=== PATIENT | female | born 1945 | race African-American/Black ===

== ENCOUNTER 2020-09-22 14:54 | Inpatient (IN) | payer OTHER, BC ==
[2020-09-22 21:30] VITALS: BP 111/75
--- NOTE | 2020-09-22 21:30 | NUR ---
Pt. admitted to the unit from the emergency room accompanied by staff. She is alert and oriented and offers no complaints. Pt. cooperative with staff. Oriented to room and staff.
--- NOTE | 2020-09-22 23:00 | NUR ---
Pt. resting quietly in the bed upon assessment. She verbalizes that she does not belong in this place and wants to get out of here tomorrow. She is not suicidal upon questioning patient. Pt. is ambulatory with a walker. Bed alarm is on.
[2020-09-23] MEDS ORDERED: SUPER THERAVIT1 EACH PO (02:31)
[2020-09-23] MEDS ORDERED: ESTRACE42.5 GM VAG (02:34)
[2020-09-23] MEDS ORDERED: KLONOPIN0.5 MG PO (02:35)
[2020-09-23 06:37] LABS: CHOLESTEROL 119 mg/dL (<200); HDL CHOLESTEROL 38 mg/dL (>40); LDL CHOLESTEROL 50 mg/dL (<100); TC:HDL 3.1 Ratio (Not establshd); TRIGLYCERIDE 156 mg/dL (<150); VLDL 31 mg/dL (<40)
[2020-09-23 06:42] LABS: CALCIUM 8.6 mg/dL (8.5-10.1); POTASSIUM 4.8 mmol/L (3.5-5.1)
[2020-09-23 06:46] LABS: SERUM ASSESSMENT Clear
[2020-09-23 08:00] VITALS: BP 130/70
--- NOTE | 2020-09-23 11:27 | NUR ---
New admission to [facility]. Pt unaware of any weight changes. Sent from [facility] for increased depression and requesting a mental hospital. Noted with poor intakes form [facility] paperwork "1/4 of 2 meals/day", but ate 100% breakfast this morning. Pt states she liked the biscuits and gravy and hopes she likes the lunch today. Reports good appetite. Pt pleasant during visit. Low nutrition risk.
--- NOTE | 2020-09-23 12:24 | NUR ---
DID COME TO DAYROOM WITH PROMPTING TO EAT BREAKFAST. ANXIOUS FACIAL EXPRESSION.ABRUPT RESPONSES TO QUESTIONS FROM NURSING STAFF. STATES "IS THERE ANYBODY HERE WHO IS NOT CRAZY" "ALL OF THESE PEOPLE ARE LOONEY AND BEING HERE IS GOING TO MAKE ME LOONEY TOO"ASKING VARIOUS STAFF MEMBERS TO "GET THAT DR HERE TO TALK TO ME-IM LEAVING-I CAN'T BE HERE WITH THESE PEOPLE. GAIT IS STEADY WITH USE OF ROLLER WALKER. DENIES SI/SH-DOES REPORT ANXIETY RATED A 9 ON 1/10 SCALE-VALIUM 5MG GIVEN PO PRN AT 1030 FOR ANXIETY. REFUSES TO ATTEND GROUPS-[facility]. DENIES SI/SH/HI. BP 130/70
[2020-09-23 19:32] VITALS: BP 127/79
[2020-09-23 23:06] LABS: GLYCOHEMOGLOBIN (HGB A1C) 5.3 % (4.8-5.6)
--- NOTE | 2020-09-24 05:32 | NUR ---
Assumed pt's care beginning of this pm shift. Pt was in her room at time of assessment. Cooperative with care. Did verbalize some anxiety. Denies SI/HI. Took meds whole per emar. Pt slept well this shift. No overnight event. Nursing to continue to monitor.
[2020-09-24 08:42] VITALS: BP 141/77
--- NOTE | 2020-09-24 16:21 | NUR ---
ERNIE recieved a call from [facility] Worker, Stella Gutierrezbobby [phone] or [phone]. ERNIE provided an update on the Pt. Stella asked if an application for food stamps and SSDI could be completed with the Pt while she was in the hospital. ERNIE informed this may not be possible however Pt has now been assigned a nurse case management through [employer]. ERNIE provided Stella with the renal case manager contact information. Stella asked to be informed when the Pt is discharged. ERNIE will continue to follow
--- NOTE | 2020-09-24 18:44 | NUR ---
0700 ASSUMED CARE OF PATIENT, PATIENT IN BED AT THAT TIME. PATIENT AMB WITH STEADY GAIT, LS CLEAR, BS ACTIVE. NO C/O PAIN. MEDICATION TAKEN WHOLE WITHOUT DIFFICULTY. PATIENT WORRIED OF URINE RETENTION, PATIENT VOIDED X3 TODAY. NO BM X3 DAYS. PATIENT SITS IN DAYROOM READING BOOK, VISITORS TODAY. DENIES NEEDS AT THIS TIME. DENIES SI / HI.
[2020-09-24 19:20] VITALS: BP 122/67
[2020-09-24 23:36] VITALS: BP 122/67
--- NOTE | 2020-09-24 23:48 | NUR ---
Pt is alert and oriented x 3, no complaints went to bed early, affect flat but pleasant. HRR, Lungs clear, abd soft nontender. Took her medication whole with water w/o difficulty. Denies SI/HI/AH/VH. will continue to monitor.
[2020-09-25 10:01] VITALS: BP 142/69
--- NOTE | 2020-09-25 18:12 | NUR ---
0700 ASSUMED CARE OF PATIENT, PATIENT SLEEPING AT THAT TIME. AMB WITH WALKER WITH STEADY GAIT. PATIENT ATE 90% OF BREAKFAST. LS CLEAR BS ACTIVE. ABD SOFT AND ROUND NO C/O PAIN. PATIENT VOIDED X1 IN AM WITH NO COMPLAINTS. NO BM X 4 DAYS PATIENT REQUESTS STOOL SOFTENER. MILK OF MAG GIVEN FOR C/O CONSTIPATION. 1809 C/O BACK PAIN, TYLENOL 650 MG PO GIVEN RATES PAIN 3. PRUNE JUICE GIVEN THIS EVENING. PATIENT SITTING IN CHAIR READING BOOK, PATIENT TEARY EYED STATES RETENTION STARTING UP AGAIN. PATIENT HAS VOIDED X2 PER PATIENT. ABD SOFT DENIES PAIN. PATIENT STATES "THIS IS A REAL PROBLEM". PATIENT CALM AND CONTINUES TO READ BOOK.
[2020-09-25 20:10] VITALS: BP 130/68
[2020-09-26 02:43] VITALS: BP 130/68
--- NOTE | 2020-09-26 02:51 | NUR ---
09/25/20 - pt was teary eyed this evening and voiced being fustrated with not having a bowel movement and also feels like she is experiencing bladder retention. "I just feel full" Miralax ordered for constipation. That was given and I discussed with the pt that I can do a bladder scan to see if she is retaining. Bladder scan completed and pt had 185 cc in bladder. Will continue to work to get pt bowels to move. Abd soft non tender, + bowel sounds. Alert and oriented x 3-4, Denies SI/HI/AH/VH.
[2020-09-26 09:01] VITALS: BP 115/65
--- NOTE | 2020-09-26 18:16 | NUR ---
0700 ASSUMED CARE OF PATIENT, PATIENT IN BED AT THAT TIME. AMB WITH WALKER WITH STEADY GAIT.PATIENT CALM AND COOPERATIVE. CONTINUES TO C/O CONSTIPATION MEDICATION GIVEN. MEDICATIONS TAKEN WHOLE WITHOUT DIFFICULTY. LS CLEAR, BS ACTIVE. PATIENT KEEPS BUSY WITH READY OFF AND ON. TYLENOL 650 MG PO GIVEN FOR C/O BACK PAIN. PATIENT C/O POSSIBLE RETENTION, STATES VOIDING MULTIPLE TIMES TODAY.
[2020-09-26 19:50] VITALS: BP 126/85
--- NOTE | 2020-09-27 02:57 | NUR ---
09-26-20 CARE TRANSFERRED 1899. LATER PT RESTING IN BED EASILY AWAKEN TO VOICE. PT AAOX4, VSS, RR EVEN AND NONLABORED ON RA. PT PRESENTS CALM AND COOPERATIVE. PT DENIES SI/HI AND PAIN. DURING MEDICATION ADMIN PT HAD NO DIFFICULTIES. LATER PT CAME TO NURSING STATION AND REPORTED HAVING A HEADACHE AND SCALED 6 ON 0-10 SCALE. PT BED WAS ADJUSTED FOR COMFORT, AND ALARM SET. UPON REASSESSMENT OF PAIN PT WAS RESTING WITH EYS CLOSED. ZERO S/S OF ACUTE DISTRESS NOTED, PT WILL CONTINUE TO BE MONITOR PER [facility] PROTOCOL.
[2020-09-27 05:29] LABS: HEMATOCRIT 37.1 % (37.0-47.0); HEMOGLOBIN 12.3 gm/dL (12.0-15.0); MCH 31.3 pg (26.0-34.0); MCHC 33.1 g/dL (28.0-37.0); MCV 94.6 fL (80.0-100.0); RBC 3.92 mil/uL (4.20-5.00); RDW 15.1 % (10.5-14.5); WBC 6.5 thou/uL (4.0-11.0)
[2020-09-27 05:33] LABS: CALCIUM 8.4 mg/dL (8.5-10.1); CREATININE 1.2 mg/dL (0.6-1.0); POTASSIUM 4.5 mmol/L (3.5-5.1)
[2020-09-27 09:00] VITALS: BP 131/73
--- NOTE | 2020-09-27 17:29 | NUR ---
ERNIE and Dr. Howard met with the Pt. The Pt's daughter, Senait, was also apart of this meeting by phone. Recommedation for assisted living was given. Pt does have detention care insurance however Senait was not sure if the funds could be accessed at this time. ERNIE and Dr. Howard advised getting a hard copy or calling the insurance company concerning how to get funding for placement. Senait stated the Pt has $2200 per month currently to pay for placement. Pt became tearful during the meeting. Pt concerned about where she will go. ERNIE offered emotional support to the Pt. SW will continue to follow
[2020-09-27 19:15] VITALS: BP 112/64
[2020-09-27 20:35] VITALS: BP 112/64
--- NOTE | 2020-09-27 23:57 | NUR ---
PATINET CARE WAS RESUMED AT 1900. SHE WAS IN BED ALARMED, LOW AND LOCKED. SHE DENIES PAINS/SI/AVH AND YELLOW SOCK AND TOP ON. SHE IS CONTINET OF B/B. C/O CONSTIPATION SHE AHD HER SCHEDULED MIRILAX. NO CONCERN OR BEHAVOIR NOTED AT THIS TIME. BS ACTIVE X4 QUAD ABD SOFT NONE TENDER. [id number] CHECK ON GOING . CONTINUE CARE
[2020-09-28 09:19] VITALS: BP 148/93
--- NOTE | 2020-09-28 10:47 | NUR ---
PT ALERT AND ORIENTED TIMES THREE. VSS. PT C/O PAIN PRN PAIN MEDICATIONS GIVEN WITH GOOD RELEIF. PT DENIES SI/HI/AH/VH. PT TOLERATES MEDS AND MEALS. PT WORKED WELL WITH PHYSICAL THERAPY, AND ATTENDED GROUPS TODAY. PT INTERACTS WELL WITH STAFF AND PEERS. WILL CONTINUE TO MONITOR.
--- NOTE | 2020-09-28 17:24 | NUR ---
ERNIE spoke with Dr. Howard concerning Pt. Dr. Howard informed the family has decided to take the Pt back to [place] at the [facility] and continue searching for an assisted living for the Pt. Pt will discharge 09/30/2020 @ 1200. The Pt's family will provide transportation. Pt has a follow up psychiatry appointment with Dr. Mcginnis on 10/12/2020
[2020-09-28 19:56] VITALS: BP 111/60
[2020-09-28 20:30] VITALS: BP 111/60
[2020-09-29] MEDS ORDERED: FLOMAX0.4 MG PO (09:21)
[2020-09-29] MEDS ORDERED: COZAAR100 MG PO (09:22)
[2020-09-29] MEDS ORDERED: LIPITOR 20 MG T20 M1 PO (09:22)
[2020-09-29] MEDS ORDERED: ADULT LOW DOSE81 MG PO (09:23)
[2020-09-29] MEDS ORDERED: CLONAZEPAM 0.50.5 M1 PO (09:23)
[2020-09-29] MEDS ORDERED: NEURONTIN 300M300 M2 PO (09:24)
[2020-09-29] MEDS ORDERED: BUPROPION XL300 MG PO (09:24)
[2020-09-29] MEDS ORDERED: STIMULANT LAXA1 EACH PO (09:25)
[2020-09-29] MEDS ORDERED: PT HOME MEDICATION MISCELL (09:27)
[2020-09-29] MEDS ORDERED: SYNTHROID25 MC1 PO (09:27)
[2020-09-29] MEDS ORDERED: MELATONIN5 M1 PO (09:28)
[2020-09-29 10:53] VITALS: BP 138/69
--- NOTE | 2020-09-29 12:50 | NUR ---
Assumed pt care at 0700. pt was alert and oriented x4. Assessments completed, vss. Active bowel sounds. Pt denies si/hi, Pt took meds whole, no difficulty noted. Ambulates with a steady gait. NO SIGN OF ACUTE DISTRESS NOTED upon assessments. pt c/o pain, pain meds administered as ordered. Pt was D/C HOME AT 1200, PT WAS D/C VIA W/C WITH DC INSTRUCTION AND BELONGINGS. PATIENT ACCESS REGISTRAR ACCOMPANIED PT TO INPATIENT PHARMACY AND SECURITY OFFICE TO GET HER BELONGINGS. PT WENT HOME WITH HER DAUGHTER.
--- NOTE | 2020-09-29 15:38 | NUR ---
A copy of discharge information was faxed to Dr. Nick Guerrero's office for continutation of care. A copy of the the fax confirmation sheet was placed in the record.
--- NOTE | 2020-10-01 22:47 | D ---
[facility] [place] [address] DISCHARGE SUMMARY Name: JANETH SIMMS Room #: 522A-A [facility] IN M.R.#: [id number] Admission: 09/22/20 Attend Phys: Jeanmarie Ni DO Discharge: 09/29/20 Date of : 41 Report #: [id number] THIS REPORT FOR: cc: FAM - Family physician unknown FAM - Family physician unknown Jeanmarie Ni DO ~ DOC #: [id number] JEANMARIE Ni DO DATE OF SERVICE: 09/29/2020 INPATIENT PSYCHIATRIC DISCHARGE SUMMARY ATTENDING PSYCHIATRIST: Jeanmarie Ni DO FLOORING SALES MANAGER: Pedro Yousif M.D. DISCHARGE DIAGNOSES: Major depressive disorder, recurrent, severe degree, improved. ADDITIONAL DIAGNOSES: As follows: Mild neurocognitive disorder; urinary tract infection, completed a week long course of Keflex; urinary retention, on Flomax; constipation; history of hyponatremia; hypertension; hyperlipidemia; hypothyroidism; history of insomnia. The patient is being discharged to her home, her daughter, Senait. DISCHARGE MEDICATIONS: Multivitamin oral daily; tamsulosin 0.4 mg oral daily for urinary retention; atorvastatin 20 mg oral at bedtime for hyperlipidemia; losartan 100 mg oral daily for hypertension; aspirin 162 mg oral daily for heart protection; clonazepam 0.5 mg oral q.12 hours for anxiety script #12 prescription was given; Neurontin 300 mg oral daily for neuropathy; senna/docusate 2 tabs oral twice daily for constipation, hold if diarrhea; levothyroxine 75 mcg oral daily for thyroid replacement; melatonin 5 mg oral at bedtime as needed for sleep. AFTERCARE: The patient sees Dr. Guerrero, appointment with Dr. Guerrero is on 10/12/2020, needs to see primary care physician within the next month. DIET: As regular. ACTIVITY LEVEL: As tolerated. No alcohol, no illicit drugs. LABORATORY DATA: Significant laboratories this admission on 09/27/2020, hematology: Hemoglobin and hematocrit 12.0 and 37.1, white count 6.5, platelet 233. On 09/23/2020, sodium 133, potassium 4.5, chloride 100, bicarbonate 25, anion gap 8, BUN 15, creatinine 1.2, estimated GFR 53, glucose 87, calcium 8.4. A1c 5.3, triglycerides 156. Cholesterol 119, LDL 50, HDL 38. COVID-[address] [id number] DISCHARGE SUMMARY Name: JANETH SIMMS Room #: 522A-A [facility] IN ..#: [id number] Admission: 09/22/20 Attend Phys: Jeanmarie Ni, Discharge: 09/29/20 Date of : 41 Report #: [id number] negative on 09/22/2020. REASON FOR ADMISSION: This is a a 75-year-old female transferred from [facility], does not want to be alive, helplessness, hopelessness. The patient was in the independent living at [facility]. HOSPITAL COURSE: The patient was admitted to Geriatric Psychiatry Unit. The patient stayed with pretty high functioning on the unit, was reading novels, participated in groups. No restraints necessary on this admission, chemical or physical. SLUMS was done on her. She scored a 16/30. I felt though her score was suppressed at a level of depression. I think given her physical problems, need for a walker, limited socialization, assisted living would be the preferred level of care. Rare meetings with the daughter and her during the stay. Overall, there are financial limitations to good in [place] and the daughter had particular places she was interested in, so we decided to initially discharge back to the [place] and see if the daughter can pursue of transitioning to [place] over the next month or two. PHYSICAL EXAMINATION: VITAL SIGNS: On day of discharge are as follows: Temperature 36.3, pulse 75, respirations 18, BP 138/69, O2 sat 100%. MUSCULOSKELETAL: Ambulates with walker, wearing glasses, fairly good hygiene, dressed. MENTAL STATUS EXAMINATION: This is a well-developed female, appearing stated age. Attention fair. Concentration fair. Speech normal in rate, volume, and tone. Thought process: Linear and goal directed. Thought content: Focused on discharge, although nervous. Denied suicidal or homicidal ideation, auditory or visual type hallucinations. Memory not formally tested. Insight limited. Judgment fair. Fund of knowledge above average. Prognosis for this patient is fair. Certainly her progressing to going to assisted living will enhance her safety and enjoyment of life. DO HONORIO Kaminski/KEKE/SCOTT <ELECTRONICALLY SIGNED> By: Jeanmarie Ni DO 10/01/20 [id number] Jeanmarie Ni DO /nt
== END 2020-09-29 12:00 | disposition home or self-care (01) | DRG 885 ==
LOC: SBH
PROVIDERS: Hospitalist; Nurse Practitioner Family; ADMIT Psychiatry & Neurology Psychiatry; ATTEND Psychiatry & Neurology Psychiatry
DX: F33.2 Major depressive disorder, recurrent severe without psychotic features (principal); R45.851 Suicidal ideations; N39.0 Urinary tract infection, site not specified; F41.1 Generalized anxiety disorder; I10 Essential (primary) hypertension; E78.5 Hyperlipidemia, unspecified; E03.9 Hypothyroidism, unspecified; G47.00 Insomnia, unspecified; F41.0 Panic disorder [episodic paroxysmal anxiety]; Z96.641 Presence of right artificial hip joint; Z96.659 Presence of unspecified artificial knee joint; R33.9 Retention of urine, unspecified; K59.00 Constipation, unspecified; Z88.8 Allergy status to other drugs, medicaments and biological substances; Z88.5 Allergy status to narcotic agent
CPT/HCPCS: 10880

== ENCOUNTER 2020-09-22 17:47 | Emergency (ER) | payer OTHER, BC ==
[~2020-09-22] VITALS: Ht 165.1 cm; Wt 74.8 kg
[2020-09-22 21:22] VITALS: BP 120/49
[2020-09-23] MEDS ORDERED: SUPER THERAVIT1 EACH PO (02:31)
[2020-09-23] MEDS ORDERED: ESTRACE42.5 GM VAG (02:34)
[2020-09-23] MEDS ORDERED: KLONOPIN0.5 MG PO (02:35)
== END 2020-09-22 21:30 ==
LOC: ER 17:47
DX: R46.89 Other symptoms and signs involving appearance and behavior (principal); Z20.822 Contact with and (suspected) exposure to COVID-19